=== PATIENT | female | born 1975 | race Caucasian/White ===

== ENCOUNTER → 2016-10-08 | Outpatient (CLI) | payer BC, OTHER ==
--- NOTE | 2016-10-08 14:01 | US ---
October 08, 2016 Dear Providers at [facility], Thank you for allowing me to see your patient, Mrs. Avila for aneuploidy screening and c onsult. As you know she is a 41 year old G 2, P 1001 . Her due date is 04/19/17 by LMP of 07/13/16 . Based on this dating her current gestational age is 13 weeks 2 day(s) . She had reassuring NIPT ( reported from your office during our visit today). She is a healthy woman without chronic medical pr oblems. Her first delivered vaginally postdates. The baby weighed 7 lb 8 oz. ULTRASOUND LMP: 07/13/16 Gestational age by LMP: 13 weeks 2 days ULYSSES by LMP: 04/19/17 CRL: 70 mm Gestational Age by CRL: 13 weeks 0 days ULYSSES by CRL: 04/21/17 Consistent with established dating (LMP or ultrasound): Yes Nuchal Translucency: 2.4 mm Nasal Bone: Present Heart Rate: 153 bpm Placenta: Anterior Right Ovary: Is not seen on today's ultrasound. Left Ovary: Is visualized and appears normal. It measures 2.6 x 1.7 x 2.1 cm. No overt structural anomalies were identified for this early ultrasound. The choroids, upper extremit ies and lower extremities were visualized and appear normal for this gestational age. Please note the full anatomic evaluation has not occurred for this early gestational age. Impression: 1. Intrauterine at 13 w, 2 d, ULYSSES of 04/19/17. 2. Nuchal translucency measurement today is 2.4 mm, which is reassuring. 3. Advanced maternal age; reassuring NIPT Recommendations: 1. Maternal serum AFP is recommended between 15-20 weeks to screen for the risk of open neural tube defects. 2. Recommend a detailed obstetrical ultrasound between 19 and 20 weeks to evaluate anatomy. 3. We reviewed all of the options for aneuploidy screening that have been completed and the opportun ities for definitive genetic diagnosis by CVS and amniocentesis. After our conversation, your couple with happy with screening and declined invasive testing. 4. For women age 40 and older, I recommend an assessment of growth at 32 weeks and consider antepart um surveillance at 36 weeks as the risk for stillbirth at term is increased for these women. Thank you for allowing us the opportunity to evaluate your patient. Should you have any further ques tions or concerns please do not hesitate to contact me. Approximately 20 minutes were spent with the patient and 12 minutes were spent in face to face consu ltation. Sugar West MD Distribution Superintendent Maternal Medicine Department of Obstetrics & Gynecology [facility]
--- NOTE | 2016-10-08 16:05 | US ---
First Trimester Obstetrical Sonography and Nuchal Translucency Measurement Clinical History: 41-year-old female with advanced maternal age presenting for early screen ing evaluation. Technique: A curvilinear 5-MHz transducer was used to sonographically evaluate the fetus and the [facility]. M-mode Doppler was used. Dr. Sugar West is present. Comparison Study: None available. LMP: July 13, 2016, indicating an age of 12 weeks, 3 days, and an estimated date of delivery of April 19, 2017. Findings: There is a single viable intrauterine gestation, with a crown-rump length of 70 mm (corres ponding to an age of 13 weeks, 2 days). The heart rate is 153 bpm. The nuchal translucency is 2.4 mm, which is at the 85th percentile for this crown-rump length (50th percentile is 1.8 mm). The nasal bone is seen. The maternal left ovary measures 1.7 x 2.1 x 2.6 cm, and the maternal right adn exal region is obscured by bowel gas and the right ovary is not identified. The placenta is forming anteriorly. There is no focal fibroid or subchorionic hemorrhage. Impression: There is a single viable intrauterine gestation, with two normal early screenin g markers. The patient should return at 20 weeks gestation for more complete anatomic screening and repeat biometry. Please also refer to Dr. Sugar West's separate assessments and specific recommendations for follow u p.
== END ==
LOC: FIMAGING 12:08
PROVIDERS: ATTEND Advanced Practice Midwife
DX: O09.522 Supervision of elderly multigravida, second trimester (principal); Z3A.13 13 weeks gestation of pregnancy

== ENCOUNTER 2017-04-28 22:45 | Inpatient (IN) | payer OTHER ==
[2017-04-28] MEDS ORDERED: PHYTONADIONE 1 MG/0.5 ML INJ ONE (23:40)
[2017-04-28] MEDS ORDERED: LR 1,000 ML IV PRN (23:47)
[2017-04-28] MEDS ORDERED: EPSOM SALT 454 GM TP PRN (23:47)
[2017-04-28] MEDS ORDERED: AMPICILLIN SODIUM 2 GM in NS 100 ML IV ONE (23:47)
[2017-04-28] MEDS ORDERED: OXYTOCIN/RINGERS LACTATE 1,000 ML IV PRN (23:47)
[2017-04-28] MEDS ORDERED: OLIVE OIL 118 ML BTL MISC PRN (23:47)
[2017-04-28] MEDS ORDERED: TERBUTALINE SULFATE 1 MG/ML VIAL IV PRN (23:47)
[2017-04-29 00:07] LABS: % IMMATURE GRANULYOCYTES 0.9 % (0.0-1.1); ABSOLUTE IMMATURE GRANULOCYTES 0.11 10^3/uL (0.00-0.10); ADD DIFF? NO; ADD MORPH? NO; ADD SCAN? NO; ATYPICAL LYMPHOCYTE FLAG 0 (0-99); FRAGMENT RBC FLAG 0 (0-99); HEMATOCRIT 41.1 % (38.0-47.0); HEMOGLOBIN 14.3 g/dL (12.6-16.3); LEFT SHIFT FLG 0 (0-99); LIPEMIA HEMOLYSIS FLAG 90 (0-99); MEAN CELL HEMOGLOBIN 32.1 pg (27.9-34.1); MEAN CELL HEMOGLOBIN CONCENTR. 34.8 g/dL (32.4-36.7); MEAN CELL VOLUME 92.4 fL (81.5-99.8); MEAN PLATELET VOLUME 11.5 fL (8.7-11.7); PLATELET CLUMPS FLAG 0 (0-99); PLATELET COUNT 169 10^3/uL (150-400); RED BLOOD CELL COUNT 4.45 10^6/uL (4.18-5.33)
[2017-04-29] MEDS ORDERED: PROMETHAZINE HCL 25 MG/ML INJ IV ONE (00:30)
[2017-04-29] MEDS ORDERED: LR 1,000 ML IV ONE (00:30)
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
[2017-04-29] MEDS ORDERED: LIDOCAINE 1% 300 MG/30 ML SDV ONE (05:57)
[2017-04-29] MEDS ORDERED: OXYTOCIN 10 UNIT/ML VIAL ONE (05:58)
[2017-04-29] MEDS ORDERED: OLIVE OIL 118 ML BTL ONE (05:58)
[2017-04-29] MEDS ORDERED: AMMONIA AROMATIC 1 EACH AMP IH ONE (05:58)
[2017-04-29] MEDS ORDERED: MISOPROSTOL 200 MCG TAB ONE (05:59)
[2017-04-29] MEDS ORDERED: AMPICILLIN SODIUM 2 GM in NS 100 ML IV ONE (08:00)
--- NOTE | 2017-04-29 08:03 | OBPROG ---
OBG Labor Progress Note Assessment/Plan: Assessment:Cat 2 fhr requesting pain relief epidural for pain relief previous exam /-1 Plan:epidural for pain relief 04/29/17 08:01 Subjective: Requesting pain relief epidural. Discussed R/B/A. William q2-3. Objective: 04/28/17 23:40 Patient ABO/Rh B POSITIVE 04/28/17 23:40 Oxytocin Orders Assessment - Pre-Induction/Augmentation Assessment Gestational Age: 41 week(s) and 3 day(s) ICD10 Worksheet Patient Problems: Problems Problem Status Onset labor Acute
[2017-04-29] MEDS ORDERED: BUPIVACAINE 0.25% 30 ML SDV ONE (08:22)
[2017-04-29] MEDS ORDERED: fentaNYL 2MCG/ML/BUP 0.1% RTU 100 ML BAG EP ONE (08:22)
[2017-04-29] MEDS ORDERED: PHENYLEPHRINE HCL 100 MCG/ML SYR ONE ×2 (08:23→17:20)
[2017-04-29] MEDS: AMPICILLIN SODIUM 1 GM in NS 100 ML IV SCH ×3 (08:38→15:51)
--- NOTE | 2017-04-29 09:09 | PREANESOB ---
Obstetric Pre-Anesthesia Info - General Info : 2 Para: 0 - Info Status: Full Term Monitors: External Anesthesia Allergies/Adverse Reactions: Allergy/AdvReac Type Severity Reaction Status Date / Time latex Allergy Verified 04/28/17 23:47 Home Medications: Medication Instructions Recorded CALCIUM 04/28/17 Fish Oil 500 mg Softgel 04/28/17 1 tab PO DAILY 04/28/17 VITAMIN D 2,000 iunits 04/28/17 Visit Medications: Generic Name Dose Route Start Last Admin Trade Name Freq PRN Reason Stop Dose Admin Ampicillin Sodium 1 gm/ Sodium 100 mls @ 200 mls/hr 04/29/17 03:49 04/29/17 08:38 Chloride IV 05/29/17 03:48 Not Given Q4H KARINA Protocol Lactated Ringer's 1,000 mls @ 0 mls/hr 04/28/17 23:47 Lr IV 10/25/17 23:46 PRN PRN SEE PROTOCOL CONDITIONS Protocol Per Protocol Oxytocin/Lactated Ringer's 1,000 mls @ 150 mls/hr 04/28/17 23:47 Pitocin 20 Units/Lr (Premix) IV PRN PRN Post- bleeding Ibuprofen 600 mg 04/28/17 23:47 Motrin PO 10/25/17 23:46 Q6HRS PRN post , inflammation Magnesium Sulfate 454 gm 04/28/17 23:47 Epsom Salt TP 10/25/17 23:46 Q1H PRN perineal discomfort [place] Oil 118 ml 04/28/17 23:47 Sweet Oil MISC 10/25/17 23:46 ONCE PRN perineal massage Terbutaline Sulfate 0.25 mg 04/28/17 23:47 Brethine IV 10/25/17 23:46 ONCE PRN Tachysystole Discontinued Medications Generic Name Dose Route Start Last Admin Trade Name Freq PRN Reason Stop Dose Admin Ammonia (Aromatic Spirit) Confirm 04/29/17 05:58 Ammonia Aromatic Administered 04/29/17 05:59 Dose 1 each IH .STK-MED ONE Bupivacaine HCl Confirm 04/29/17 08:22 Sensorcaine 0.25% Sdv Administered 04/29/17 08:23 Dose 30 ml .ROUTE .STK-MED ONE Fentanyl/Bupivacaine HCl Confirm 04/29/17 08:22 Fentanyl/Bupivacaine/Ns 2 Mcg/Ml 0.1% (Premix Administered 04/29/17 08:23 Dose 100 ml EP .STK-MED ONE Ampicillin Sodium 2 gm/ Sodium 110 mls @ 220 mls/hr 04/28/17 23:47 04/29/17 08:00 Chloride IV 04/29/17 00:16 110 mls ONCE ONE Administration Protocol Lactated Ringer's 1,000 mls @ 0 mls/hr 04/29/17 00:30 04/28/17 23:40 Lr IV 04/29/17 00:31 1,000 mls ONCE ONE Administration As Directed Ampicillin Sodium 2 gm/ Sodium 110 mls @ 220 mls/hr 04/29/17 08:00 Chloride IV 04/29/17 08:29 ONCE ONE Protocol Lidocaine HCl Confirm 04/29/17 05:57 Lidocaine Hcl 1% Administered 04/29/17 05:58 Dose 300 mg .ROUTE .STK-MED ONE Misoprostol Confirm 04/29/17 05:59 Cytotec Administered 04/29/17 06:00 Dose 800 mcg .ROUTE .STK-MED ONE Morphine Sulfate 8 mg 04/29/17 00:30 04/29/17 00:40 Morphine IM 04/29/17 00:31 8 mg ONCE ONE Administration Morphine Sulfate 2 mg 04/29/17 00:30 04/29/17 00:36 Morphine IVP 04/29/17 00:31 2 mg ONCE ONE Administration [place]field Oil Confirm 04/29/17 05:58 Sweet Oil Administered 04/29/17 05:59 Dose 118 ml .ROUTE .STK-MED ONE Oxytocin Confirm 04/29/17 05:58 Pitocin Administered 04/29/17 05:59 Dose 40 unit .ROUTE .STK-MED ONE Phenylephrine HCl Confirm 04/29/17 08:23 Neosynephrine Administered 04/29/17 08:24 Dose 1,000 mcg .ROUTE .STK-MED ONE Phytonadione Confirm 04/28/17 23:40 Vitamin K Administered 04/28/17 23:41 Dose 1 mg .ROUTE .STK-MED ONE Promethazine HCl 25 mg 04/29/17 00:30 04/29/17 00:30 Phenergan IV 04/29/17 00:31 25 mg ONCE ONE Administration - Anesthesia History Response to Local Anesthetics: Normal Anesthesia & Operative History: No Prior Problems Family Anesthesia History: Not Applicable - Social History Substance Use/Abuse: Denies - Focused Exam Height/Weight (Nursing): Height 167.64 cm Weight 83.461 kg ASA Status: II Labs: 04/28/17 23:40 Patient ABO/Rh B POSITIVE 04/28/17 23:40 - Plan Consent Signed and on Chart: Yes Patient/Guardian Understands and Agrees to Plan: Yes
[2017-04-29] MEDS ORDERED: NALOXONE HCL 0.4 MG/ML INJ IVP PRN ×3 (09:10→19:57)
[2017-04-29] MEDS ORDERED: ONDANSETRON 4 MG/2 ML VIAL IVP PRN ×2 (09:10→19:57)
[2017-04-29] MEDS ORDERED: METOCLOPRAMIDE 10 MG/2 ML VIAL IVP PRN (09:10)
[2017-04-29] MEDS ORDERED: PHENYLEPHRINE HCL 100 MCG/ML SYR IVP PRN (09:10)
[2017-04-29] MEDS ORDERED: LR 500 ML IV SCH (09:30)
[2017-04-29] MEDS ORDERED: fentaNYL 2MCG/ML/BUP 0.1% RTU 100 ML EP SCH (09:30)
--- NOTE | 2017-04-29 10:12 | OBPROG ---
OBG Labor Progress Note Assessment/Plan: Assessment:Cat 2 fhr 02 for support after morphine epidural placed with great pain relief exam /100/-2 cephalic antibiotics for gbs positive #1 at 0815 will wait for intervention until #2 antibiotic hung or delivery Plan:expectant management or arom when able 04/29/17 08:01 04/29/17 10:10 Subjective: Epidural is in place feeling significantly less pain. Durant catheter placed with minimal pain. Change in cervix Objective: 04/28/17 23:40 Patient ABO/Rh B POSITIVE 04/28/17 23:40 - SVE Dilation (cm): 7 Effacement (%): 100 Station: -2 - Physical Exam General Appearance: WD/WN, alert, no apparent distress Abdomen: other (irregular contractions) Extremities: normal range of motion, Atif's sign (negative bilaterally) DTR- Lower Extremities: Knee (R): 1+, Knee (L): 1+ (no clonus) Skin: normal color, warm/dry Neuro/Psych: no motor/sensory deficits, alert, normal mood/affect, oriented x 3 Oxytocin Orders Assessment - Pre-Induction/Augmentation Assessment Gestational Age: 41 week(s) and 3 day(s) ICD10 Worksheet Patient Problems: Problems Problem Status Onset labor Acute
--- NOTE | 2017-04-29 11:27 | OBPROG ---
OBG Labor Progress Note Assessment/Plan: Assessment:Cat 2 fhr 02 for support after morphine epidural placed with great pain relief exam /-1 cephalic antibiotics for gbs positive #1 at 0815 will wait for intervention until #2 antibiotic hung or delivery will sit up mto assist with pain relief and press epidural bolus request to assist with pain relief Plan:expectant management or arom when able 04/29/17 08:01 04/29/17 10:10 04/29/17 11:26 Subjective: Feeling greater pelvic pressure. Would like to be checked Objective: 04/28/17 23:40 Patient ABO/Rh B POSITIVE 04/28/17 23:40 - SVE Dilation (cm): 9 Effacement (%): 100 Station: -1 Oxytocin Orders Assessment - Pre-Induction/Augmentation Assessment Gestational Age: 41 week(s) and 3 day(s) ICD10 Worksheet Patient Problems: Problems Problem Status Onset labor Acute
[2017-04-29] MEDS ORDERED: METHYLERGONOVINE MAL 0.2 MG/ML INJ ONE (11:50)
[2017-04-29] MEDS ORDERED: HEMABATE 250 MCG/1 ML AMP IM ONE (11:51)
--- NOTE | 2017-04-29 12:31 | OBPROG ---
OBG Labor Progress Note Assessment/Plan: Assessment:Cat 2 fhr 02 for support after morphine epidural placed with great pain relief exam /0 cephalic antibiotics for gbs positive #2 hung at 1200 will sit up to assist with pain relief and press epidural bolus request to assist with pain relief repeated to assist with pressure sensation arom clear fluid Plan:expectant management 04/29/17 08:01 04/29/17 10:10 04/29/17 11:26 04/29/17 12:30 Objective: 04/28/17 23:40 Patient ABO/Rh B POSITIVE 04/28/17 23:40 - SVE Dilation (cm): 9 Effacement (%): 100 Station: 0 - Procedures Non-surgical Procedures: Amniotomy (clear fluid) Oxytocin Orders Assessment - Pre-Induction/Augmentation Assessment Gestational Age: 41 week(s) and 3 day(s) ICD10 Worksheet Patient Problems: Problems Problem Status Onset labor Acute
[2017-04-29] MEDS ORDERED: ACETAMINOPHEN 500 MG TAB ONE (14:07)
--- NOTE | 2017-04-29 14:56 | OBPROG ---
OBG Labor Progress Note Assessment/Plan: Assessment:Cat 2 fhr 02 for support after morphine feeling greater pain with contractions anesthesia called to assist with a bolus for greater pain relief exam /0 cephalic antibiotics for gbs positive #2 hung at 1200 tachycardia tylenol 1g given recent arom fluid bolus clear fluid continues Plan:iupc once comfortable/ pitocin if not adequete 04/29/17 08:01 04/29/17 10:10 04/29/17 11:26 04/29/17 12:30 04/29/17 14:53 Objective: 04/28/17 23:40 Patient ABO/Rh B POSITIVE 04/28/17 23:40 - SVE Dilation (cm): 9 Effacement (%): 100 Station: 0 Oxytocin Orders Assessment - Pre-Induction/Augmentation Assessment Gestational Age: 41 week(s) and 3 day(s) ICD10 Worksheet Patient Problems: Problems Problem Status Onset labor Acute
--- NOTE | 2017-04-29 15:25 | OBPROG ---
OBG Labor Progress Note Assessment/Plan: Assessment:Cat 2 fhr 02 for support after morphine feeling greater pain with contractions anesthesia called to assist with a bolus for greater pain relief exam 9/100/0 cephalic/ no change to cervix antibiotics for gbs positive #2 hung at 1200 tachycardia tylenol 1g given recent arom/ .6 fluid bolus clear fluid continues iupc placed/ contractions not adequete will begin pitocin Plan:pitocin per protocol 04/29/17 08:01 04/29/17 10:10 04/29/17 11:26 04/29/17 12:30 04/29/17 14:53 04/29/17 15:23 Subjective: feeling pressure /pain with the contractions Objective: 04/28/17 23:40 Patient ABO/Rh B POSITIVE 04/28/17 23:40 - SVE Dilation (cm): 9 Effacement (%): 100 Station: 0 - Procedures Non-surgical Procedures: Amniotomy (clear fluid) Oxytocin Orders Assessment - Pre-Induction/Augmentation Assessment Gestational Age: 41 week(s) and 3 day(s) ICD10 Worksheet Patient Problems: Problems Problem Status Onset labor Acute
[2017-04-29] MEDS ORDERED: OXYTOCIN/RINGERS LACTATE 500 ML IV SCH (15:30)
[2017-04-29] MEDS ORDERED: OXYTOCIN/LR *STANDARD DOSE PROTOCOL IV SCH (16:00)
[2017-04-29] MEDS ORDERED: ceFAZolin 2 GM/DEXTROSE 100 ML IV ONE (16:26)
[2017-04-29] MEDS ORDERED: LR 500 ML IV ONE (16:26)
[2017-04-29] MEDS ORDERED: CITRIC ACID/SODIUM CITRATE 30 ML UDCUP PO ONE (16:26)
[2017-04-29] MEDS ORDERED: LIDO/EPI 2% **for epidural** 20 ML SDV ONE ×2 (16:56)
[2017-04-29] MEDS ORDERED: OXYTOCIN 100 UNITS/10 ML VIAL ONE (17:14)
[2017-04-29 17:29] LABS: BASE EXCESS CORD -7.7 mEq/L (-13.6--3.2); CORD BLOOD PCO2 65.5 mmHg (37-60); PH ARTERIAL CORD BLOOD 7.17 (7.10-7.37)
[2017-04-29 17:33] LABS: PH VENOUS CORD BLOOD 7.27 (7.20-7.42)
[2017-04-29] MEDS ORDERED: MEPERIDINE 25 MG/ML SYR IVP PRN (18:04)
[2017-04-29] MEDS ORDERED: PROMETHAZINE HCL 25 MG/ML INJ IVP PRN ×2 (18:04→19:57)
[2017-04-29] MEDS ORDERED: HYDROmorphONE/DILAUDID 1 MG/ML SYR IVP PRN ×2 (18:04→19:57)
[2017-04-29] MEDS ORDERED: fentaNYL 100 MCG/2 ML INJ IVP PRN ×2 (18:04→19:57)
[2017-04-29] MEDS ORDERED: SIMETHICONE 80 MG TAB CHEW PO PRN (18:04)
[2017-04-29] MEDS ORDERED: POLYETHYLENE GLYCOL 3350 17 GM PKT PO PRN (18:04)
[2017-04-29] MEDS ORDERED: LACTULOSE 20 GM/30 ML UDCUP PO PRN (18:04)
[2017-04-29] MEDS ORDERED: IBUPROFEN 600 MG TAB PO PRN (18:04)
[2017-04-29] MEDS ORDERED: MAGNESIUM HYDROXIDE 30 ML UDCUP PO PRN (18:04)
[2017-04-29] MEDS ORDERED: BISACODYL 10 MG SUPP PR PRN (18:04)
--- NOTE | 2017-04-29 18:07 | OBPROG ---
OBG Labor Progress Note Assessment/Plan: Assessment:1630 Cat 2 fhr 02 for support after morphine anterior lip reduced with reduction of lip malpresentation noted us completed face presentation noted dr. cordero called for dr. wang called for anesthesia patient to the back for per dr. cordero antibiotics for gbs positive #3 hung at 1600 tachycardia / maternal tachycardia tylenol 1g given/ recent arom 1230/ febrile 38.6 x1 resolved with tylenol clear fluid continues ancef requested for section Plan:proceed to section 04/29/17 08:01 04/29/17 10:10 04/29/17 11:26 04/29/17 12:30 04/29/17 14:53 04/29/17 15:23 04/29/17 17:59 Objective: 04/28/17 23:40 Patient ABO/Rh B POSITIVE 04/28/17 23:40 - SVE Dilation (cm): 10 Effacement (%): 100 Station: +1 Oxytocin Orders Assessment - Pre-Induction/Augmentation Assessment Gestational Age: 41 week(s) and 3 day(s) ICD10 Worksheet Patient Problems: Problems Problem Status Onset labor Acute
--- NOTE | 2017-04-29 18:07 | POSTANESTH ---
Post Anesthetic Evaluation Cardiovascular Status: Normal, Stable Respiratory Status: Normal, Stable Level of Consciousness/Mental Status: Can Participate in Eval Pain Control: Adequate, Prn Tx Ordered Nausea/Vomiting Control: Adequate, Prn Tx Ordered Complications Possibly Related to Anesthesia: None Noted
--- NOTE | 2017-04-29 18:14 | OBDEL ---
Info Type: Primary GBS+: Yes Antibiotic Used for + GBS: Ampicillin Number of Antibiotic Doses Given: 3 Indications for Delivery: Spontaneous Labor (Prodromal labor, s/p morphine rest) Vaginal Delivery - Labor and Delivery Non-surgical Procedures: Amniotomy (clear fluid) Cord Gases: Cord Gases Cord Blood PCO2 65.5 mmHg (37-60) H 04/29/17 17:20 Cord Base Excess -7.7 mEq/L (-13.6--3.2) 04/29/17 17:20 Cord ABG pH 7.17 (7.10-7.37) 04/29/17 17:20 Cord VBG pH 7.27 (7.20-7.42) 04/29/17 17:20 Operative Report - Delivery Pre-op Diagnoses: IUP at 41 2/7 wks with face presentation Post-op Diagnoses: IUP at 41 2/7 wks with face presentation Nulliparous Prior to Delivery: No Presentation at Delivery: Face Procedure: Low Transverse Surgeon: Shanon Gaxiola Director [employer] Retail: Avelina Fowler Anesthesiologist: Miko Alvarado Data Analytics Developer/SAMPLE PREPARATION SUPERVISOR: Taylor Woods [employer] Analgesia/Anesthesia Type: Epidural Complications: None Findings: A viable female with 8 and 9 Apgars with face presentation. A grossly normal appearing uterus, tubes and ovaries. IV Fluid (ml): 1,700 EBL: 700 cc UO: 400 cc clear urine Cord Gases: Cord Gases Cord Blood PCO2 65.5 mmHg (37-60) H 04/29/17 17:20 Cord Base Excess -7.7 mEq/L (-13.6--3.2) 04/29/17 17:20 Cord ABG pH 7.17 (7.10-7.37) 04/29/17 17:20 Cord VBG pH 7.27 (7.20-7.42) 04/29/17 17:20 Data Garcia Delivery Date: 04/29/17 Delivery Time: 17:13 ULYSSES: 04/20/17 Gestational Age: 41 week(s) and 2 day(s) Sex of : Female Score (1 Min): 8 Score (5 Min): 9 ICD10 Worksheet Patient Problems: Problems Problem Status Onset Face presentation of fetus Acute Status post primary low transverse section Acute labor Acute - ICD10 Problem Qualifiers (1) Face presentation of fetus Qualifiers: Fetus number: F (2) Status post primary low transverse section
[2017-04-29] MEDS ORDERED: HYDROmorphONE/DILAUDID 6 MG/30 ML PCA IV PRN (18:17)
[2017-04-29] MEDS ORDERED: HYDROmorphONE/DILAUDID 2 MG/ML INJ IVP ONE (18:30)
[2017-04-29] MEDS ORDERED: KETOROLAC 30 MG/1 ML SDV ONE (18:35)
--- NOTE | 2017-04-29 19:55 | GOP ---
[f rep st] OPERATIVE REPORT DATE OF OPERATION: 04/29/2017 SURGEON: Shanon Gaxiola DO EMPLOYMENT ADVISOR: Omaira Fowler CNM. ANESTHESIA: Spinal. ANESTHESIOLOGIST: Miko Alvarado M.D. PREOPERATIVE DIAGNOSIS: 1. Intrauterine at 41 weeks and 2 days gestation. 2. Face presentation. POSTOPERATIVE DIAGNOSIS: 1. Intrauterine at 41-2/7 weeks' gestation. 2. Face presentation. PROCEDURE PERFORMED: Primary low transverse section. FINDINGS: A viable female in face presentation with 8 and 9 Apgars delivered at 1713 on 04/29. ABG 7.1 and VBG 7.2. Placenta delivered intact spontaneously with 3-vessel cord. Grossly normal-appearing uterus, tubes and ovaries bilaterally. ESTIMATED BLOOD LOSS: 700 cc. INDICATIONS: Patient is a 41-year-old 2, para 1-0-0-1 at 41-2/7 weeks, who presented to Labor and Delivery 24 hours ago in prodromal labor, status post morphine rest, and then kicked into spontaneous labor on her own. She received an epidural, and progressed to 9.5 cm. Was noted to be face presentation upon reducing anterior lip, and confirmed by beside ultrasound. We discussed the findings with the patient and recommended a at this time secondary to face presentation. We discussed risks of the procedure including but not limited to bleeding, infection, damage to surrounding organs. The patient does understand all risks of this procedure and wants to proceed with surgery at this time. The patient has been properly consented. DESCRIPTION OF PROCEDURE: Patient was taken to the operating room, where epidural anesthesia was rebolused. She was positioned in dorsal supine position with a leftward tilt. Durant catheter in place. She was then prepped and draped in normal sterile fashion. Anesthesia was assessed and found to be adequate. A Pfannenstiel skin incision was then made 2 fingerbreadths above the pubic symphysis. Incision was carried through to the underlying layer of fascia with the Bovie. The fascia was then nicked in the midline. Fascial incision was extended laterally with Longo scissors. Superior aspect of the fascial incision was then grasped with Alison clamps, tented up, underlying rectus muscle was dissected off bluntly as well as using the Longo scissors. Attention was then turned to the inferior aspect of the fascial incision, which , in a similar fashion, was grasped with Alison clamps, tented up, and underlying rectus muscle was dissected off with the Longo scissors. Rectus muscle were then in the midline. Peritoneum was identified and entered bluntly and extended superiorly and inferiorly with excellent visualization of the bladder. Bladder blade was then inserted. Vesicouterine peritoneum was identified, tented up, and entered sharply with the Metzenbaum scissors. The incision was then extended laterally and the bladder flap created digitally. Bladder blade was then reinserted. The uterus was then incised in a low transverse fashion with the scalpel. The uterine incision was extended anteriorly and posteriorly. At this time, there was noted to be the baby's shoulders. With nurse down below, using a vaginal hand to help push the head up, the head finally was able to be in a position where it could be delivered. It was a face presentation with swelling of eyelids and nose as well as lips. The cord was clamped x2 and cut. Cord blood and cord gases were obtained. The infant was handed off to the awaiting nurse practitioner. The placenta was then removed spontaneously intact with a 3- vessel cord noted. The uterus was then exteriorized and cleared of all clots and any remaining placenta. The uterine incision was then closed with 0 Vicryl in a running, locked fashion. A second 0 Vicryl stitch was used to imbricate the uterine incision. Hemostasis was noted. Ovaries, uterus and tubes did appear unremarkable. The uterus was then placed back inside the abdomen. The gutters were then cleared of all clots and debris. The uterine incision was then visualized again and did appear hemostatic. There was noted some oozing near the left lateral incision, and at this point, surgical Dylan was placed for further hemostasis. The rectus muscle was then approximated with 2-0 Vicryl in a running fashion. The fascia was closed with 0 Vicryl in a running fashion. Hemostasis was noted. The subcutaneous tissue was reapproximated with 3-0 Vicryl in a running fashion. Hemostasis was noted. The skin was then closed with 4-0 Vicryl on a Myron needle. Sponge, lap, and needle counts were correct x2. Patient tolerated the procedure well. No complications. The patient was then transported to recovery room in stable condition. INTRAVENOUS FLUIDS: 1700 cc of LR. URINE OUTPUT: 400 cc of clear urine at the end of procedure. /[id number]/MODL MTDD
[2017-04-29] MEDS: LR 1,000 ML IV SCH (22:27)
[2017-04-30] MEDS ORDERED: KETOROLAC 30 MG/1 ML SDV IVP SCH
[2017-04-30] MEDS: KETOROLAC 30 MG/1 ML SDV IVP SCH ×3 (00:15→12:05)
[2017-04-30] MEDS: AMPICILLIN SODIUM 1 GM in NS 100 ML IV SCH (00:36)
[2017-04-30] MEDS: SENNOSIDES/DOCUSATE SODIUM TAB PO SCH ×3 (00:47→22:17)
[2017-04-30] MEDS: LR 1,000 ML IV SCH (03:36)
[2017-04-30 04:13] LABS: HEMATOCRIT 32.1 % (38.0-47.0); HEMOGLOBIN 11.3 g/dL (12.6-16.3); MEAN CELL HEMOGLOBIN 32.5 pg (27.9-34.1); MEAN CELL HEMOGLOBIN CONCENTR. 35.2 g/dL (32.4-36.7); MEAN CELL VOLUME 92.2 fL (81.5-99.8); RED BLOOD CELL COUNT 3.48 10^6/uL (4.18-5.33); RED CELL DISTRIBUTION WIDTH 12.8 % (11.5-15.2)
[2017-04-30] MEDS: DOCUSATE SODIUM 100 MG CAP PO PRN (11:37)
[2017-04-30] MEDS: HYDROCODONE/APAP 5/325 TAB PO PRN ×3 (12:05→22:18)
[2017-04-30] MEDS: IBUPROFEN 600 MG TAB PO PRN (18:20)
--- NOTE | 2017-04-30 22:23 | OBPP ---
Progress Note Assessment/Plan: Assessment: pod# 1 s/p PLTCS for face and compound presentation breast feeding anemia Plan: routine post and post operative care 04/30/17 22:20 Subjective/ Course: 04/30/17 22:21 patient is doing well. pain is well controlled. passing gas. has not had a bowel movement. voiding without difficulty. normal lochia. working on breast feeding. baby on bili lights. ambulating. Objective: 04/30/17 03:45 Patient ABO/Rh B POSITIVE 04/28/17 23:40 Temp Pulse Resp BP Pulse Ox 36.7 C 98 18 102/66 93 04/30/17 21:20 04/30/17 21:20 04/30/17 21:20 04/30/17 21:20 04/30/17 21:20 Uterine Position/Fundal Height: Umbilicus -2 Uterine Tone: Firm Physical Exam - Physical Exam Neck: non-tender, full range of motion Respiratory: chest non-tender, lungs clear, normal breath sounds Cardiac/Chest: normal peripheral pulses, regular rate, rhythm Abdomen: normal bowel sounds, non-tender Extremities: normal range of motion, non-tender, normal inspection Skin: normal color, warm/dry, other (incision covered) Neuro/Psych: no motor/sensory deficits, alert, normal mood/affect, oriented x 3
[2017-05-01] MEDS: IBUPROFEN 600 MG TAB PO PRN ×4 (00:15→17:54)
[2017-05-01] MEDS ORDERED: SUCROSE 1 EA UDL ONE (05:59)
[2017-05-01] MEDS: HYDROCODONE/APAP 5/325 TAB PO PRN ×5 (06:03→22:00)
--- NOTE | 2017-05-01 08:18 | OBPP ---
Progress Note Assessment/Plan: Assessment: Post Op day #2 s/p primary c/s (face presentation) anemia Plan: Routine post op care start PO iron BID encouraged ambulation cont plan to d/c home tomorrow 05/01/17 08:14 05/01/17 08:20 Subjective/ Course: 04/30/17 22:21 patient is doing well. she is without difficulty; she is ambulating well; reports +flatus; denies any pain Objective: 04/30/17 03:45 Patient ABO/Rh B POSITIVE 04/28/17 23:40 Temp Pulse Resp BP Pulse Ox 36.7 C 98 18 102/66 93 04/30/17 21:20 04/30/17 21:20 04/30/17 21:20 04/30/17 21:20 04/30/17 21:20 Exam: VSS CV: RRR, no murmur Resp: CTA-B Abd: soft, nontender, incision dressing C/D/I, +BS x4 Uterus: firm @ U-1 Lochia: min rubra extrem: trace edema, negative yogesh's sign Uterine Position/Fundal Height: Umbilicus -1, Midline Uterine Tone: Firm
[2017-05-01] MEDS: SENNOSIDES/DOCUSATE SODIUM TAB PO SCH ×2 (08:47→22:00)
[2017-05-01] MEDS: IRON POLYSAC/IRON HEME 28 MG TAB PO SCH (08:47)
[2017-05-01] MEDS: DOCUSATE SODIUM 100 MG CAP PO PRN (22:00)
[2017-05-02] MEDS: IBUPROFEN 600 MG TAB PO PRN ×4 (01:11→19:27)
[2017-05-02] MEDS: HYDROCODONE/APAP 5/325 TAB PO PRN ×5 (02:47→21:57)
[2017-05-02] MEDS: SENNOSIDES/DOCUSATE SODIUM TAB PO SCH ×2 (07:15→19:28)
[2017-05-02] MEDS: IRON POLYSAC/IRON HEME 28 MG TAB PO SCH (07:15)
--- NOTE | 2017-05-02 16:21 | OBPP ---
Progress Note Assessment/Plan: Assessment: 41 y/o POD #3 s/p LTCS secondary to face presentation. Plan: Routine POC. D/c home tomorrow. 05/02/17 16:20 Subjective/ Course: 04/30/17 22:21 Pt is doing well today. She has good pain control with [place] and Ibuprofen. She is ambulating, voiding and breast feeding well and her milk has come in. They are ready to d.c home tomorrow. 05/02/17 16:18 Objective: 04/30/17 03:45 Patient ABO/Rh B POSITIVE 04/28/17 23:40 Temp Pulse Resp BP Pulse Ox 36.3 C 86 16 119/84 H 95 05/02/17 07:52 05/02/17 07:52 05/02/17 07:52 05/02/17 07:52 05/02/17 07:52 Uterine Position/Fundal Height: Umbilicus -2 Uterine Tone: Firm Physical Exam - Physical Exam General Appearance: alert, no apparent distress Neck: non-tender, full range of motion, supple Respiratory: chest non-tender, lungs clear, normal breath sounds Cardiac/Chest: regular rate, rhythm Abdomen: normal bowel sounds, incision (c/d/i) Extremities: swelling (no), Atif's sign (neg)
[2017-05-02] MEDS: DOCUSATE SODIUM 100 MG CAP PO PRN (19:26)
[2017-05-03] MEDS: HYDROCODONE/APAP 5/325 TAB PO PRN ×3 (02:38→13:06)
[2017-05-03] MEDS: IBUPROFEN 600 MG TAB PO PRN ×2 (02:39→11:08)
[2017-05-03] MEDS ORDERED: SUCROSE 1 EA UDL ONE (05:21)
[2017-05-03] MEDS: DOCUSATE SODIUM 100 MG CAP PO PRN (07:28)
[2017-05-03] MEDS: IRON POLYSAC/IRON HEME 28 MG TAB PO SCH (07:30)
[2017-05-03 07:31] VITALS: BP 126/90; PULSE 82; RESP 16; TEMP 97; O2SAT 97
[2017-05-03] MEDS: SENNOSIDES/DOCUSATE SODIUM TAB PO SCH (11:07)
--- NOTE | 2017-05-03 13:14 | OBPP ---
Progress Note Assessment/Plan: Assessment: pod# 4 s/p PLTCS for face and compound presentation breast feeding anemia Plan: routine post and post operative care discharge instructions 05/03/17 13:11 Subjective/ Course: 04/30/17 22:21 Pt is doing well today. She has good pain control with [place] and Ibuprofen. She is ambulating, voiding and breast feeding well and her milk has come in. They are ready to d.c home tomorrow. 05/02/17 16:18 05/03/17 13:12 patient is doing well. had small amount of loose stools but not formed bowel movements. breast feeding. pain is well controlled. normal lochia. denies headache and changes in vision. ready to go home. Objective: 04/30/17 03:45 Patient ABO/Rh B POSITIVE 04/28/17 23:40 Temp Pulse Resp BP Pulse Ox 36.1 C 82 16 126/90 H 97 05/03/17 07:30 05/03/17 07:30 05/03/17 07:30 05/03/17 07:30 05/03/17 07:30 Physical Exam - Physical Exam Neck: non-tender, full range of motion, supple Respiratory: chest non-tender, lungs clear, normal breath sounds Cardiac/Chest: normal peripheral pulses, regular rate, rhythm Abdomen: normal bowel sounds, hypoactive bowel sounds, non-tender Extremities: normal range of motion, non-tender, normal inspection, normal capillary refill Skin: normal color, warm/dry, other (incision clean dry and intact) Neuro/Psych: no motor/sensory deficits, alert, normal mood/affect, oriented x 3
--- NOTE | 2017-05-03 13:20 | OBGCSDC ---
General Delivery Information - General Info : 2 Para: 2 Type: Primary L&D Analgesia/Anesthesia Type: Epidural Admission Date: 04/28/17 Labs: Patient ABO/Rh B POSITIVE 04/28/17 23:40 Hct 32.1 % (38.0-47.0) L 04/30/17 03:45 - Hospital Course Antepartum: 05/03/17 13:24 g1 delivered at good cristóbal. hx pp depression after g1. was on zoloft after g1. uncomplicated . declined IOL at 40 weeks for AMA after 40. negative verify. Intrapartum: 05/03/17 13:25 prodromal labor. progressed to complete. found to be face presentation. To OR for PLTCS. : 04/30/17 22:21 Pt is doing well today. She has good pain control with [place] and Ibuprofen. She is ambulating, voiding and breast feeding well and her milk has come in. They are ready to d.c home tomorrow. 05/02/17 16:18 05/03/17 13:12 patient is doing well. had small amount of loose stools but not formed bowel movements. breast feeding. pain is well controlled. normal lochia. denies headache and changes in vision. ready to go home. Vaginal - Procedures Non-surgical Procedures: Amniotomy (clear fluid) - Delivery Providers Surgeon: Shanon Gaxiola Agricultural Equipment Operator: Avelina Fowler Anesthesiologist: Miko Alvarado - Delivery Number of Prior Sections: 0 Indications for Current Section: Other (Specify) (face presentation) Non-surgical Procedures: Amniotomy (clear fluid) Surgical Procedures: Low Transverse Intra-op Complications: None EBL: 700 cc UO: 400 cc clear urine [place] [facility] Delivery Date: 04/29/17 Delivery Time: 17:13 ULYSSES: 04/19/17 Gestational Age: 42 week(s) and 0 day(s) Sex of : Female [place] Weight (gm): 3456 g Score (1 Min): 8 Score (5 Min): 9 Discharge Information - Discharge Information Prescriptions: Hydrocodone/APAP 5/325 [[place] 5/325 (*)] 1 - 2 tab PO Q4HRS PRN #30 tab PRN Reason: Pain, Moderate Ibuprofen [Motrin (*)] 600 mg PO Q6HRS PRN #30 tab PRN Reason: post , inflammation Condition: Good Instruction/Follow Up: Two Weeks, Four Weeks, Six Weeks
== END 2017-05-03 16:10 | disposition home or self-care (01) | DRG 766 ==
LOC: FLD 22:45 → OBSVTOIN 23:47 → FOB 04-29 20:31
PROVIDERS: ADMIT Obstetrics & Gynecology; ATTEND Obstetrics & Gynecology
PROC: 10D00Z1 Extraction of Products of Conception, Low, Open Approach (ICD-10-PCS; principal; 2017-04-29)
PROC: 4A1J7BZ Monitoring of Products of Conception, Nervous Pressure, Via Natural or Artificial Opening (ICD-10-PCS; 2017-04-29)
PROC: 3E033VJ Introduction of Other Hormone into Peripheral Vein, Percutaneous Approach (ICD-10-PCS; 2017-04-29)
PROC: 10907ZC Drainage of Amniotic Fluid, Therapeutic from Products of Conception, Via Natural or Artificial Opening (ICD-10-PCS; 2017-04-29)
DX: O32.3XX0 Maternal care for face, brow and chin presentation, not applicable or unspecified (principal); O48.0 Post-term pregnancy; O99.344 Other mental disorders complicating childbirth; O99.824 Streptococcus B carrier state complicating childbirth; O90.81 Anemia of the puerperium; Z3A.41 41 weeks gestation of pregnancy; Z37.0 Single live birth
CPT/HCPCS: J0290; J0690; J1170; J1885; J2210; J2370; J2550; J2590; J3430

== ENCOUNTER → 2018-07-23 | Outpatient (CLI) | payer OTHER | LOC: FIMAGING 10:40 | PROVIDERS: ATTEND Obstetrics & Gynecology | DX: Z12.31 Encounter for screening mammogram for malignant neoplasm of breast (principal) ==